=== PATIENT | female | born 1940 | race African-American/Black ===

== ENCOUNTER 2018-01-21 10:40 | Outpatient (CLI) | payer MEDICARE | END 2018-01-21 10:41 | disposition home or self-care (01) | LOC: BICMAMMO 10:40 | PROVIDERS: ATTEND Internal Medicine | DX: Z12.31 Encounter for screening mammogram for malignant neoplasm of breast (principal); R92.1 Mammographic calcification found on diagnostic imaging of breast | CPT/HCPCS: 77063; 77067 ==

== ENCOUNTER 2019-01-25 09:19 | Outpatient (CLI) | payer MEDICARE | END 2019-01-25 09:20 | disposition home or self-care (01) | LOC: BICMAMMO 09:19 | PROVIDERS: ATTEND Internal Medicine | DX: Z12.31 Encounter for screening mammogram for malignant neoplasm of breast (principal); R92.1 Mammographic calcification found on diagnostic imaging of breast | CPT/HCPCS: 77063; 77067 ==

== ENCOUNTER 2019-06-16 10:36 | Emergency (ER) | payer MEDICARE ==
--- NOTE | 2019-06-16 11:05 | RAD ---
XR Chest 1 View Portable HISTORY: Weakness, dizziness, shortness of breath, hypertension COMPARISON: None FINDINGS: The heart size is at upper limits of normal. The lungs are well expanded without focal area s of consolidation, pneumothorax or pleural effusions. IMPRESSION: No radiographic evidence of acute cardiopulmonary process.
[2019-06-16 11:13] LABS: #Basophils 0.1 thou/uL (0.0-0.2); #Eosinphils 0.1 thou/uL (0.0-0.7); #Lymphocytes 1.7 thou/uL (1.20-3.40); #Monocytes 0.4 thou/uL (0.11-0.59); #Neutrophils 2.7 thou/uL (1.40-6.50); %Eosinophils 1.7 % (0.0-10.0); %Lymphocytes 33.9 % (21.0-51.0); %Monocytes 8.4 % (0.0-10.0); Hemoglobin 12.9 g/dL (12.0-16.0); Mean Corpuscular HGB CONC 34.1 g/dL (32.0-36.0); Mean Corpuscular Hemoglobin 32.6 pg (27.0-31.0); Mean Corpuscular Volume 95.7 fL (78.0-98.0); Mean Platelet Volume 7.2 fL (7.4-10.4); Platelet Count 200 thou/uL (130-400); RBC Distribution Width 11.1 % (11.5-14.5); Red Blood Cell (RBC) Count 3.96 mill/uL (4.20-5.40)
[2019-06-16 11:34] LABS: ALT (SGPT) 13 U/L (8-55); AST (SGOT) 17 U/L (5-34); Albumin 4.1 g/dL (3.4-4.8); Alkaline Phosphatase 73 U/L (40-150); Anion Gap 12 mmol/L (10-20); BUN (Urea Nitrogen) 13 mg/dL (9.8-20.1); Bilirubin, Total 0.5 mg/dL (0.2-1.2); Calc. Creatinine Clearance 0 mL/min (70-130); Calcium 10.6 mg/dL (7.8-10.44); Carbon Dioxide 29 mmol/L (23-31); Chloride 103 mmol/L (98-107); Estimated GFR-MDRD 90; Globulin 3.2 g/dL (2.4-3.5); Glucose 96 mg/dL (83-110); Magnesium 1.9 mg/dL (1.6-2.6); Potassium 3.2 mmol/L (3.5-5.1); Protein, Total 7.3 g/dL (6.0-8.3); Sodium 141 mmol/L (136-145)
[2019-06-16 11:49] LABS: Bilirubin Negative (Negative); Blood, Urine Negative (Negative); Clarity Clear (Clear); Glucose, Urine (Dipstick) Normal (Negative); Leukocyte 25 Leu/uL (Negative); Nitrite Negative (Negative); Protein, Urine (Dipstick) Negative (Neg-Trace); RBC/HPF 0-3 HPF (0-3); Squamous Epithelial 0-3 HPF (0-3); Urobilinogen Normal mg/dL (Less than 2); WBC/HPF 0-3 HPF (0-3)
[2019-06-16 11:50] LABS: Bacteria/HPF 1+ HPF (None Seen)
== END 2019-06-16 14:19 | disposition home or self-care (01) ==
LOC: ERS 10:36
DX: R55 Syncope and collapse (principal); I10 Essential (primary) hypertension; Z79.899 Other long term (current) drug therapy
CPT/HCPCS: 36415; 71045; 80053; 81003; 81015; 83735; 84484; 85025; 93005

== ENCOUNTER 2019-08-28 13:09 | Observation (INO) | payer MEDICARE ==
--- NOTE | 2019-08-28 14:09 | CT ---
CT Brain WO Con: 08/28/2019 1:45 PM CLINICAL HISTORY: High blood pressure and dizziness. IMAGING TECHNIQUE: Multiple CT images were obtained of the brain without IV contrast. COMPARISON: May 19, 2013 FINDINGS: Brain: No acute infarct, hemorrhage or midline shift is evident. There is mild chronic small vessel white matter ischemic change. Ventricles: Normal. No hydrocephalus.. Skull: Intact.. Visualized Paranasal sinuses: Clear.. Mastoid air cells:Clear. Extracranial soft tissues:Normal. IMPRESSION: No acute intracranial abnormality.
[2019-08-28] MEDS ORDERED: Meclizine HCl 25 MG TAB ONE (14:32)
[2019-08-28 14:42] LABS: #Lymphocytes 1.5 thou/uL (1.20-3.40); #Monocytes 0.4 thou/uL (0.11-0.59); #Neutrophils 1.8 thou/uL (1.40-6.50); %Basophils 0.6 % (0.0-1.0); %Lymphocytes 39.3 % (21.0-51.0); %Monocytes 11.8 % (0.0-10.0); %Neutrophils 47.5 % (42.0-75.0); Hemoglobin 12.4 g/dL (12.0-16.0); Mean Corpuscular HGB CONC 34.7 g/dL (32.0-36.0); Mean Corpuscular Hemoglobin 32.4 pg (27.0-31.0); Mean Corpuscular Volume 93.3 fL (78.0-98.0); Mean Platelet Volume 6.9 fL (7.4-10.4); Platelet Count 211 thou/uL (130-400); RBC Distribution Width 10.7 % (11.5-14.5); Red Blood Cell (RBC) Count 3.83 mill/uL (4.20-5.40); White Blood Cell (WBC) Count 3.7 thou/uL (4.8-10.8)
[2019-08-28 15:06] LABS: ALT (SGPT) 11 U/L (8-55); AST (SGOT) 16 U/L (5-34); Albumin 3.9 g/dL (3.4-4.8); Alkaline Phosphatase 70 U/L (40-110); Anion Gap 9 mmol/L (10-20); BUN (Urea Nitrogen) 7 mg/dL (9.8-20.1); Bilirubin, Total 0.5 mg/dL (0.2-1.2); Calc. Creatinine Clearance 0 mL/min (70-130); Calcium 9.7 mg/dL (7.8-10.44); Carbon Dioxide 27 mmol/L (23-31); Chloride 96 mmol/L (98-107); Estimated GFR-MDRD Greater than 90; Globulin 3.4 g/dL (2.4-3.5); Glucose 94 mg/dL (83-110); Potassium 3.6 mmol/L (3.5-5.1); Protein, Total 7.3 g/dL (6.0-8.3); Sodium 128 mmol/L (136-145)
[2019-08-28 15:27] LABS: CKMB 2.8 ng/mL (0-6.6)
[2019-08-28] MEDS ORDERED: hydrALAZINE 20 MG/ML VIAL ONE (17:32)
[2019-08-28] MEDS ORDERED: Senokot S 8.6-50 MG TAB PO PRN (18:40)
[2019-08-28] MEDS ORDERED: Acetaminophen 325 MG TAB PO PRN (18:40)
[2019-08-28] MEDS ORDERED: Sodium Chloride 0.45% 1,000 ML IV SCH (18:45)
[2019-08-28 18:49] LABS: Bilirubin Negative (Negative); Blood, Urine Negative (Negative); Clarity Clear (Clear); Glucose, Urine (Dipstick) Normal (Negative); Leukocyte Negative Leu/uL (Negative); Nitrite Negative (Negative); Protein, Urine (Dipstick) Negative (Neg-Trace); Urobilinogen Normal mg/dL (Less than 2)
[2019-08-28 20:08] VITALS: BMI 36.6
[2019-08-28] MEDS: Famotidine 20 MG TAB PO SCH (20:39)
[2019-08-28 20:52] LABS: Troponin I 0.019 ng/mL (< 0.028)
--- NOTE | 2019-08-28 20:59 | HP ---
PRIMARY CARE PHYSICIAN: Dr. Mckinney. CHIEF COMPLAINT: Dizziness, hypertension. HISTORY OF PRESENT ILLNESS: Ms. Myers is a very pleasant 79-year-old female, who came to the ER today complaining of dizziness and high blood pressure. Reports that Dr. Mckinney changed her home blood pressure medication a week ago and today she started feeling dizzy. When she checked her blood pressure, it was elevated. The patient denies any chest pain, shortness of breath, abdominal pain, fever, or cough. Denies any recent falls or injuries. She reports that she has a history of dizziness, and as needed she has meclizine at home that she takes it and makes it better. The patient's family reports that the patient has an appointment with Dr. Mckinney on Thursday. She was probably going to increase one of the new medications that she gave her. Family reports that she took her off her amlodipine and added atenolol, she was either going to increase it or make it b.i.d. In the emergency room initially, her blood pressure was 211/86. She was given a dose of meclizine and hydralazine IV and some fluids, and one hospitalist CSR saw her she was feeling better and eating her supper. Family also reports that she swells on her bilateral lower legs pretty much every day and she has never had a cardiac workup. Her initial troponin in the emergency room was in the indeterminate range at 0.033. Subsequent one is undetectable at 0.28. Sodium is also found to be low 128, potassium 3.6, chloride 96, gap is 9, BUN is 7, creatinine is 0.72, estimated GFR is greater than 90, glucose 94, calcium 9.7. Liver enzymes are unremarkable. Hemoglobin 12.4, hematocrit 35.7, and platelet count 211. Urine was negative. She was subsequently admitted to the observation unit for hydration and is trending troponins. REVIEW OF SYSTEMS: The patient reports some dizziness. All other systems are reviewed and are negative unless mentioned in the HPI. PAST MEDICAL HISTORY: GERD, hypertension. PAST SURGICAL HISTORY: Right knee surgery. SOCIAL HISTORY: Lives at home with her family. She denies any alcohol use. Denies any drug use. No smoking history. The patient does have Home Health that comes to visit several times a week. FAMILY HISTORY: Reviewed. ALLERGIES: NONE. CURRENT MEDICATIONS: Per the ER system, are still have to be verified. 1. Aspirin 81 mg p.o. once a day. 2. Atenolol 25 mg p.o. once a day at bedtime. 3. Losartan/hydrochlorothiazide 100/12.5 mg p.o. q.a.m. 4. Meclizine 25 mg q.8 hours p.r.n. as needed. 5. Xanax 1 mg p.o. as needed for anxiety. PHYSICAL EXAMINATION: VITAL SIGNS: Blood pressure 142/83, pulse is 78, respirations are 18, temperature is 98.1, pO2 saturations are 99% on room air. CONSTITUTIONAL: The patient appears nontoxic. She is alert and oriented to person, place, and time. HEENT: Head is atraumatic and normocephalic. Eyelids are normal to inspection. Pupils are equally round and reactive to light. ENT: Mucous membranes are moist. Mouth exam is normal. NECK: Normal range of motion. Trachea is midline. RESPIRATORY: Chest movement is symmetrical. Breath sounds are clear. CARDIOVASCULAR: Regular rate and rhythm. Heart sounds are normal. ABDOMEN: Nontender. Bowel sounds are heard. BACK: Normal inspection. Normal range of motion. No tenderness. EXTREMITIES: Upper extremity, normal range of motion, normal strength, radial pulses are normal. Lower extremity, normal inspection, normal range of motion, pedal pulses are normal. The patient is wearing compression hose. No edema is noted. NEUROLOGIC: The patient is oriented to person, place, and time. Speech is normal. SKIN: Warm, dry, normal in color. PSYCH: Has a normal affect. She is alert and oriented to person, place, and time. LABORATORY DATA: EKG in the emergency room shows sinus darien, beats per minute 59. T-waves are flattened. CT of the brain was also obtained in the emergency room and no acute findings. ASSESSMENT AND PLAN: 1. Hyponatremia. We will gently hydrate the patient, half-normal saline at 75 mL per hour. Recheck electrolytes in the morning. 2. Indeterminate troponin. We will trend. The patient's family reports that she has significant swelling in her bilateral lower legs and she has never had an echocardiogram, so we will obtain that while she is here. 3. Hypertension. We will restart her home medication. We will trend. 4. History of dizziness/vertigo. Restart her meclizine as needed. 5. Deep venous thrombosis and gastrointestinal prophylaxis have been started. 6. Case was discussed with Dr. Phillips, who agrees with plan. 7. Hospital course is dependent on clinical findings. Job ID: [id number] MTDD
[2019-08-28] MEDS ORDERED: Atenolol 25 MG TAB PO SCH (21:30)
[2019-08-28] MEDS ORDERED: ALPRAZolam 0.25 MG TAB PO PRN (22:30)
[2019-08-28] MEDS ORDERED: cloNIDine 0.1 MG TAB PO PRN (22:30)
[2019-08-29 04:33] LABS: #Lymphocytes 2.2 thou/uL (1.20-3.40); #Monocytes 0.6 thou/uL (0.11-0.59); %Basophils 0.6 % (0.0-1.0); %Lymphocytes 44.7 % (21.0-51.0); %Monocytes 12.6 % (0.0-10.0); %Neutrophils 41.1 % (42.0-75.0); Hemoglobin 11.5 g/dL (12.0-16.0); Mean Corpuscular HGB CONC 34.8 g/dL (32.0-36.0); Mean Corpuscular Hemoglobin 33.1 pg (27.0-31.0); Mean Corpuscular Volume 95.1 fL (78.0-98.0); Mean Platelet Volume 7.2 fL (7.4-10.4); Platelet Count 215 thou/uL (130-400); RBC Distribution Width 10.8 % (11.5-14.5); Red Blood Cell (RBC) Count 3.46 mill/uL (4.20-5.40)
[2019-08-29 04:37] LABS: Anion Gap 12 mmol/L (10-20); BUN (Urea Nitrogen) 9 mg/dL (9.8-20.1); Calc. Creatinine Clearance 86 mL/min (70-130); Carbon Dioxide 23 mmol/L (23-31); Chloride 102 mmol/L (98-107); Estimated GFR-MDRD Greater than 90; Glucose 87 mg/dL (83-110); Potassium 3.5 mmol/L (3.5-5.1); Sodium 133 mmol/L (136-145)
[2019-08-29] MEDS ORDERED: Losartan/Hydrochlorothiazide 100 mg/25 mg Tablet PO SCH (09:00)
[2019-08-29] MEDS ORDERED: Prevnar 13-Val Conj/PF 0.5 ML SYRINGE IM ONE (09:00)
[2019-08-29] MEDS: Losartan 25 MG TAB PO SCH ×2 (09:11→20:36)
[2019-08-29] MEDS: Famotidine 20 MG TAB PO SCH ×2 (09:11→20:36)
[2019-08-29] MEDS: Enoxaparin Sodium 40 MG/0.4 ML SYRINGE SC SCH (09:11)
[2019-08-29] MEDS ORDERED: Meclizine HCl 25 MG TAB PO PRN (09:16)
[2019-08-29] MEDS ORDERED: Lorazepam 0.5 MG TAB PO PRN (09:19)
[2019-08-29] MEDS ORDERED: Atenolol 25 MG TAB PO SCH (21:00)
--- NOTE | 2019-08-29 21:36 | PDOC.HOSPP ---
- Subjective Encounter Date: 08/29/19 Encounter Time: 12:00 Subjective: Patient seen and examined for dizziness. No new focal deficits. No CP/SOB or palpitations. No new complaints. No overnight events - Objective Vital Signs & Weight: Vital Signs (12 hours) Temp Pulse Resp BP BP Pulse Ox 08/29/19 20:40 53 L 08/29/19 19:40 97.5 F L 54 L 15 146/63 H 98 08/29/19 18:03 180/74 H 08/29/19 15:38 98.1 F 60 16 183/80 H 98 08/29/19 10:28 97.4 F L 60 16 161/72 H 98 Weight Admit Weight 181 lb 1.6 oz Weight 181 lb 1.6 oz I&O: 08/28/19 08/29/19 08/30/19 06:59 06:59 06:59 Intake Total 1150 970 Output Total 1300 650 Balance -150 320 Result Diagrams: 08/29/19 03:53 08/29/19 03:53 EKG Reviewed by me: Yes (Tele SR) Hospitalist ROS - Review of Systems Respiratory: denies: cough, dry, shortness of breath, hemoptysis, SOB with excertion, pleuritic pain, sputum, wheezing, other Cardiovascular: denies: chest pain, palpitations, orthopnea, paroxysmal noc. dyspnea, edema, light headedness, other - Medication Medications: Active Medications Generic Name Dose Route Start Last Admin Trade Name Freq PRN Reason Stop Dose Admin Atenolol 25 mg 08/29/19 21:00 08/29/19 20:40 Tenormin PO Not Given HS TERRY Clonidine 0.1 mg 08/28/19 22:30 08/29/19 18:03 Catapres PO 0.1 mg Q4H PRN Administration SBP Greater Than 170 Enoxaparin Sodium 40 mg 08/29/19 09:00 08/29/19 09:11 Lovenox SC 40 mg 0900 TERRY Administration Famotidine 20 mg 08/28/19 21:00 08/29/19 20:36 Pepcid PO 20 mg BID TERRY Administration Losartan Potassium 50 mg 08/29/19 09:00 08/29/19 20:36 Cozaar PO 50 mg BID TERRY Administration Sodium Chloride 10 ml 08/28/19 18:40 08/29/19 20:38 Flush - Normal Saline IVF 10 ml PRN PRN Administration Saline Flush - Exam General Appearance: NAD Neck: supple, no JVD Heart: RRR, no rubs Heart - other findings: no heaves/pulsations Respiratory: CTAB, no wheezes, no rales, no ronchi Gastrointestinal: soft, non-tender, non-distended, normal bowel sounds Extremities: no edema Neurological: cranial nerve grossly intact, normal sensation to touch, no weakness, no new deficit Psychiatric: normal affect, A&O x 3 Hosp A/P - Plan DVT proph w/SCDs Dizziness/Vertigo - suspected peripheral HTN Hyponatremia Obesity BMI 36.6 Elevated troponins due to demand ischemia/dehydration (Type 2 DC) GERD PLAN: Hold HCTZ due to hyponatremia Cont Losartan and BB Await Echo F/U with ENT as outpt
[2019-08-30 08:01] VITALS: TEMP 97.7
[2019-08-30] MEDS ORDERED: Amlodipine 5 MG TAB PO SCH (08:30)
[2019-08-30] MEDS ORDERED: Losartan 25 MG TAB PO SCH (09:00)
[2019-08-30] MEDS: Famotidine 20 MG TAB PO SCH (09:24)
[2019-08-30] MEDS: Enoxaparin Sodium 40 MG/0.4 ML SYRINGE SC SCH (09:24)
[2019-08-30 11:22] VITALS: BP 150/67
--- NOTE | 2019-08-30 11:50 | DIS ---
DATE OF ADMISSION: 08/28/2019 DATE OF DISCHARGE: 08/30/2019 DISCHARGE DISPOSITION: Home with [facility]. FOLLOWUP: 1. Follow up with Dr. Chaudhari, ENT tomorrow. 2. Follow up with primary care physician, Dr. Mckinney in 1 week. Repeat basic metabolic profile after 1 week is recommended. DISCHARGE MEDICATIONS: 1. Losartan 100 mg daily. 2. Meclizine as needed. 3. Amlodipine 2.5 mg daily. 4. Atenolol 25 mg at bedtime. Medication discontinued this admission hydrochlorothiazide. SIGNIFICANT LABORATORY DATA: Sodium on admission 128, repeat sodium next day was 133. Troponin was 0.033. Repeat troponin was 0.019. The patient was seen and examined on the day of discharge. Denies any new complaints. No chest pain, shortness of breath, or palpitations. CT scan of the brain on admission was negative. The patient will benefit from an outpatient cardiology evaluation including a stress test. BRIEF HOSPITAL COURSE: The patient is a 79-year-old female with hypertension and GERD, presented to the hospital with persistent dizziness along with elevated blood pressure. Her blood pressure in the emergency room was 211/86. Please refer to the history and physical for further details. The patient was admitted to the hospital with a diagnosis of generalized weakness, dizziness probably secondary to hyponatremia. Her sodium was 128. She received 1 L of IV fluid, after which a sodium improved. Hydrochlorothiazide was discontinued. Amlodipine was added to losartan 100 mg daily. She continued atenolol. The family was instructed to increase the dose of amlodipine to 2.5 mg b.i.d. if her blood pressure remains elevated. Due to symptoms consistent with peripheral vertigo along with tinnitus, the referral for ENT has been made for tomorrow. She had an echocardiogram that showed ejection fraction greater than 60 to 65 with mild aortic regurgitation, [id number] tricuspid regurgitation and mild pulmonic regurgitation. PLAN: Plan of care was discussed with the patient and the family in detail. They stated understanding. FINAL DIAGNOSES: 1. Generalized weakness, multifactorial. 2. Hyponatremia, probably secondary to dehydration along with hydrochlorothiazide. 3. Hypertension with hypertensive urgency. 4. Peripheral vertigo. 5. Anxiety. 6. Elevated troponin secondary to uncontrolled blood pressure/demand ischemia/type 2 myocardial infarction. 7. Obesity with a BMI of 36.6. Job ID: [id number]
[2019-08-31] MEDS ORDERED: Amlodipine 5 MG TAB PO SCH (09:00)
== END 2019-08-30 11:55 | disposition home health service (06) ==
LOC: ERS 13:09 → 2SW 18:27
PROVIDERS: ADMIT Internal Medicine; ATTEND Internal Medicine
DX: E87.1 Hypo-osmolality and hyponatremia (principal); E86.0 Dehydration; H81.399 Other peripheral vertigo, unspecified ear; I16.0 Hypertensive urgency; I10 Essential (primary) hypertension; F41.9 Anxiety disorder, unspecified; I21.A1 Myocardial infarction type 2; E66.9 Obesity, unspecified; Z68.36 Body mass index [BMI] 36.0-36.9, adult; Z79.82 Long term (current) use of aspirin; Z79.899 Other long term (current) drug therapy
CPT/HCPCS: 70450; 80048; 80053; 81003; 82553; 84484 ×2; 85025 ×2; 90670; 93005; 93306; 94760; 96361 ×3; 96372 ×2; 96374; 97116; 99285; G0009; G0378 ×4; 36415; 90471; J0360; J1650; J8597

== ENCOUNTER 2021-07-05 09:37 | Outpatient (CLI) | payer MEDICARE | END 2021-07-05 09:38 | disposition home or self-care (01) | LOC: BICMAMMO 09:37 | PROVIDERS: ATTEND Internal Medicine | DX: Z12.31 Encounter for screening mammogram for malignant neoplasm of breast (principal) | CPT/HCPCS: 77063; 77067 ==

== ENCOUNTER 2022-06-13 08:56 | Outpatient (CLI) | payer MEDICARE | END 2022-06-13 08:57 | disposition home or self-care (01) | LOC: NM 08:56 | PROVIDERS: ATTEND Psychiatry & Neurology Neurology | DX: R25.1 Tremor, unspecified (principal); G20 Parkinson's disease | CPT/HCPCS: 78803; A9584 ==

== ENCOUNTER 2024-08-27 08:19 | Inpatient (IN) | payer MEDICARE ==
[2024-08-27 09:11] LABS: #Basophils Less than 0.03 10x3/uL (0.0-0.2); #Eosinophils Less than 0.03 10x3/uL (0.0-0.7); %Basophils 0.1 % (0.0-1.0); %Lymphocytes 2.3 % (21.0-51.0); %Monocytes 4.4 % (0.0-10.0); %Neutrophils 92.9 % (42.0-75.0); Hematocrit 32.8 % (36.0-47.0); Hemoglobin 11.4 g/dL (12.0-16.0); Mean Corpuscular HGB CONC 34.8 g/dL (32.0-36.0); Mean Corpuscular Hemoglobin 32.8 pg (27.0-31.0); Mean Corpuscular Volume 94.3 fL (78.0-98.0); Mean Platelet Volume 10.2 fL (7.4-10.4); Platelet Count 185 10x3/uL (130-400); RBC Distribution Width 12.3 % (11.5-14.5); Red Blood Cell (RBC) Count 3.48 mill/uL (4.20-5.40)
[2024-08-27] MEDS ORDERED: Iopamidol 370 76% 100 ML VIAL ONE (09:14)
[2024-08-27 09:28] LABS: Bacteria/HPF None Seen HPF (None Seen); Bilirubin Negative (Negative); Blood, Urine Trace (Negative); CAUTI Indications for Culture Immunosuppressed; Clarity Clear (Clear); Glucose, Urine (Dipstick) Normal (Negative); Ketone, Urine Trace mg/dL (Negative); Leukocyte Negative Leu/uL (Negative); Nitrite Negative (Negative); Protein, Urine (Dipstick) 30 mg/dL (Neg-Trace); Specific Gravity, Urine 1.017 (1.002-1.036); Squamous Epithelial 0-3 HPF (0-3); WBC/HPF 0-3 HPF (0-3)
[2024-08-27 09:30] LABS: ALT (SGPT) 6 U/L (8-55); AST (SGOT) 15 U/L (5-34); Albumin 3.8 g/dL (3.4-4.8); Alkaline Phosphatase 63 U/L (40-110); Anion Gap 17 mmol/L (10-20); BUN (Urea Nitrogen) 13 mg/dL (9.8-20.1); Bilirubin, Total 1.3 mg/dL (0.2-1.2); Calc. Creatinine Clearance 0 mL/min (70-130); Calcium 10.1 mg/dL (7.8-10.44); Carbon Dioxide 20 mmol/L (23-31); Chloride 95 mmol/L (98-107); Estimated GFR 42; Glucose 165 mg/dL (83-110); Lipase 12 U/L (8-78); Protein, Total 6.8 g/dL (5.8-8.1); Sodium 128 mmol/L (136-145)
[2024-08-27 09:30] LABS: Urine Culture Reflex Yes Yes
[2024-08-27 09:34] LABS: Troponin I 0.022 ng/mL (< 0.028)
[2024-08-27] MEDS ORDERED: Benzocaine 20% Spray 60 ML CAN ONE (11:35)
[2024-08-27] MEDS ORDERED: Acetaminophen 650 MG Suppository PR PRN (12:19)
[2024-08-27] MEDS ORDERED: Morphine 2 MG/ML VIAL SLOW IVP PRN (12:20)
[2024-08-27] MEDS: Lactated Ringer's 1,000 ML IV SCH (13:54)
[2024-08-27] MEDS: Pantoprazole 40 MG VIAL IVP SCH (13:55)
[2024-08-27 15:37] VITALS: BMI 21.0
[2024-08-27] MEDS: hydrALAZINE 20 MG/ML VIAL SLOW IVP PRN (16:33)
[2024-08-27] MEDS ORDERED: DorzolamidE/Timolol 2%/0.5% Ophth Soln 10 ml Bottle L EYE SCH (21:00)
[2024-08-27] MEDS ORDERED: DorzolamidE/Timolol 2%/0.5% Ophth Soln 10 ml Bottle R EYE SCH (21:00)
[2024-08-27] MEDS: DorzolamidE/Timolol 2%/0.5% Ophth Soln 10 ml Bottle EA EYE SCH (22:50)
[2024-08-28 05:48] LABS: #Basophils Less than 0.03 10x3/uL (0.0-0.2); #Eosinophils Less than 0.03 10x3/uL (0.0-0.7); %Basophils 0.2 % (0.0-1.0); %Lymphocytes 8.5 % (21.0-51.0); %Monocytes 7.1 % (0.0-10.0); %Neutrophils 83.9 % (42.0-75.0); Hematocrit 31.8 % (36.0-47.0); Hemoglobin 10.9 g/dL (12.0-16.0); Mean Corpuscular HGB CONC 34.3 g/dL (32.0-36.0); Mean Corpuscular Hemoglobin 32.8 pg (27.0-31.0); Mean Corpuscular Volume 95.8 fL (78.0-98.0); Mean Platelet Volume 9.8 fL (7.4-10.4); Platelet Count 174 10x3/uL (130-400); RBC Distribution Width 12.5 % (11.5-14.5); Red Blood Cell (RBC) Count 3.32 mill/uL (4.20-5.40)
[2024-08-28 06:05] LABS: Anion Gap 15 mmol/L (10-20); BUN (Urea Nitrogen) 16 mg/dL (9.8-20.1); Calc. Creatinine Clearance 36 mL/min (70-130); Calcium 9.3 mg/dL (7.8-10.44); Carbon Dioxide 21 mmol/L (23-31); Chloride 99 mmol/L (98-107); Estimated GFR 49; Glucose 88 mg/dL (83-110); Magnesium 1.5 mg/dL (1.6-2.6); Potassium 3.8 mmol/L (3.5-5.1); Sodium 131 mmol/L (136-145)
[2024-08-28 06:18] LABS: Phosphorus 3.8 mg/dL (2.3-4.7)
[2024-08-28] MEDS: Pantoprazole 40 MG VIAL IVP SCH (08:35)
[2024-08-28] MEDS: Magnesium 2 GM/50 ML(in water) 2 GM in Premix 1 BAG IVPB SCH (08:35)
[2024-08-28] MEDS: Lactated Ringer's 1,000 ML IV SCH (15:22)
[2024-08-28] MEDS: Lactated Ringer's 500 ML IV SCH (15:22)
[2024-08-29 07:39] LABS: #Basophils Less than 0.03 10x3/uL (0.0-0.2); #Eosinophils Less than 0.03 10x3/uL (0.0-0.7); %Basophils 0.1 % (0.0-1.0); %Eosinophils 0.1 % (0.0-10.0); %Lymphocytes 11.1 % (21.0-51.0); %Monocytes 7.8 % (0.0-10.0); %Neutrophils 80.3 % (42.0-75.0); Hematocrit 28.1 % (36.0-47.0); Hemoglobin 9.5 g/dL (12.0-16.0); Mean Corpuscular HGB CONC 33.8 g/dL (32.0-36.0); Mean Corpuscular Hemoglobin 32.3 pg (27.0-31.0); Mean Corpuscular Volume 95.6 fL (78.0-98.0); Mean Platelet Volume 9.8 fL (7.4-10.4); Platelet Count 162 10x3/uL (130-400); RBC Distribution Width 12.7 % (11.5-14.5); Red Blood Cell (RBC) Count 2.94 mill/uL (4.20-5.40)
[2024-08-29 08:07] LABS: ALT (SGPT) 6 U/L (8-55); AST (SGOT) 14 U/L (5-34); Albumin 2.9 g/dL (3.4-4.8); Alkaline Phosphatase 45 U/L (40-110); Anion Gap 11 mmol/L (10-20); BUN (Urea Nitrogen) 16 mg/dL (9.8-20.1); Bilirubin, Direct 0.5 mg/dL (0.1-0.3); Bilirubin, Total 1.2 mg/dL (0.2-1.2); Calc. Creatinine Clearance 45 mL/min (70-130); Calcium 9.2 mg/dL (7.8-10.44); Carbon Dioxide 24 mmol/L (23-31); Chloride 101 mmol/L (98-107); Estimated GFR 65; Glucose 77 mg/dL (83-110); Potassium 3.2 mmol/L (3.5-5.1); Protein, Total 5.3 g/dL (5.8-8.1); Sodium 133 mmol/L (136-145)
[2024-08-29] MEDS ORDERED: Glycerin Adult Supp. (12 ct jar) PR PRN (10:15)
[2024-08-29] MEDS: Potassium Chloride 20 MEQ in Premix 1 BAG IVPB SCH (11:14)
[2024-08-29] MEDS: Lactated Ringer's 1,000 ML IV SCH (11:15)
[2024-08-29] MEDS: Glycerin Adult Supp. (12 ct jar) PR SCH (11:15)
[2024-08-29 12:15] VITALS: BMI 21.0
[2024-08-30 08:18] LABS: #Basophils Less than 0.03 10x3/uL (0.0-0.2); %Basophils 0.1 % (0.0-1.0); %Eosinophils 0.4 % (0.0-10.0); %Monocytes 8.8 % (0.0-10.0); %Neutrophils 79.2 % (42.0-75.0); Hemoglobin 10.1 g/dL (12.0-16.0); Mean Corpuscular HGB CONC 31.6 g/dL (32.0-36.0); Mean Corpuscular Hemoglobin 32.3 pg (27.0-31.0); Mean Corpuscular Volume 102.2 fL (78.0-98.0); Mean Platelet Volume 9.7 fL (7.4-10.4); Platelet Count 167 10x3/uL (130-400); Red Blood Cell (RBC) Count 3.13 mill/uL (4.20-5.40)
[2024-08-30 09:19] LABS: ALT (SGPT) 7 U/L (8-55); AST (SGOT) 17 U/L (5-34); Alkaline Phosphatase 47 U/L (40-110); Anion Gap 15 mmol/L (10-20); BUN (Urea Nitrogen) 16 mg/dL (9.8-20.1); Bilirubin, Direct 0.4 mg/dL (0.1-0.3); Bilirubin, Total 1.2 mg/dL (0.2-1.2); Calc. Creatinine Clearance 50 mL/min (70-130); Calcium 9.3 mg/dL (7.8-10.44); Carbon Dioxide 20 mmol/L (23-31); Chloride 103 mmol/L (98-107); Estimated GFR 73; Glucose 89 mg/dL (83-110); Potassium 3.7 mmol/L (3.5-5.1); Protein, Total 5.6 g/dL (5.8-8.1); Sodium 134 mmol/L (136-145)
[2024-08-30] MEDS: Glycerin Adult Supp. (12 ct jar) PR SCH (09:59)
[2024-08-31 05:38] LABS: ALT (SGPT) 7 U/L (8-55); AST (SGOT) 14 U/L (5-34); Albumin 2.9 g/dL (3.4-4.8); Alkaline Phosphatase 42 U/L (40-110); Anion Gap 14 mmol/L (10-20); BUN (Urea Nitrogen) 21 mg/dL (9.8-20.1); Bilirubin, Direct 0.4 mg/dL (0.1-0.3); Calc. Creatinine Clearance 45 mL/min (70-130); Calcium 9.6 mg/dL (7.8-10.44); Carbon Dioxide 23 mmol/L (23-31); Chloride 102 mmol/L (98-107); Estimated GFR 64; Glucose 104 mg/dL (83-110); Potassium 3.9 mmol/L (3.5-5.1); Protein, Total 5.6 g/dL (5.8-8.1); Sodium 135 mmol/L (136-145)
[2024-08-31 05:52] LABS: Hematocrit 29.3 % (36.0-47.0); Hemoglobin 9.9 g/dL (12.0-16.0); Mean Corpuscular HGB CONC 33.8 g/dL (32.0-36.0); Mean Corpuscular Hemoglobin 32.2 pg (27.0-31.0); Mean Corpuscular Volume 95.4 fL (78.0-98.0); Mean Platelet Volume 10.2 fL (7.4-10.4); Platelet Count 167 10x3/uL (130-400); RBC Distribution Width 12.6 % (11.5-14.5); Red Blood Cell (RBC) Count 3.07 mill/uL (4.20-5.40)
[2024-08-31 06:43] LABS: Anisocytosis SLIGHT = 6-15 cells HPF (0-5); Band 16 % (5-11); Burr Cells MODERATE= 6-15 cells HPF (0-1); Lymphocytes 10 % (21-51); Metamyelocyte 5 % (0-0); Monocytes 5 % (0-10); Neutrophil 64 % (42-75); Platelet Adequacy Comment Platelets Normal; Poikilocytosis SLIGHT = 6-15 cells HPF (0-5); Target Cells SLIGHT = 2-5 cells HPF (0-1); Toxic Granulation SLIGHT
[2024-08-31] MEDS ORDERED: MD-Gastroview 120 ML BOT ONE (09:21)
[2024-08-31] MEDS: Lorazepam 1 MG TAB PO PRN (14:37)
[2024-08-31] MEDS: Lactated Ringer's 1,000 ML IV SCH (18:20)
[2024-09-01 01:23] LABS: Bacteria/HPF 4+ HPF (None Seen); Bilirubin 1+ (Negative); Blood, Urine 2+ (Negative); CAUTI Indications for Culture Dysuria,urgency,freq; Clarity Turbid (Clear); Glucose, Urine (Dipstick) Normal (Negative); Ketone, Urine 20 mg/dL (Negative); Leukocyte Negative Leu/uL (Negative); Nitrite Negative (Negative); Protein, Urine (Dipstick) 50 mg/dL (Neg-Trace)
[2024-09-01 01:25] LABS: Urine Culture Reflex Yes Yes
[2024-09-01] MEDS: Lactated Ringer's 1,000 ML IV SCH (04:09)
[2024-09-01 05:51] LABS: #Basophils Less than 0.03 10x3/uL (0.0-0.2); #Eosinophils Less than 0.03 10x3/uL (0.0-0.7); %Eosinophils 0.2 % (0.0-10.0); %Lymphocytes 16.8 % (21.0-51.0); %Monocytes 11.6 % (0.0-10.0); %Neutrophils 70.9 % (42.0-75.0); Hematocrit 27.4 % (36.0-47.0); Hemoglobin 9.1 g/dL (12.0-16.0); Mean Corpuscular HGB CONC 33.2 g/dL (32.0-36.0); Mean Corpuscular Hemoglobin 32.3 pg (27.0-31.0); Mean Corpuscular Volume 97.2 fL (78.0-98.0); Mean Platelet Volume 9.7 fL (7.4-10.4); Platelet Count 164 10x3/uL (130-400); RBC Distribution Width 12.9 % (11.5-14.5); Red Blood Cell (RBC) Count 2.82 mill/uL (4.20-5.40)
[2024-09-01 06:13] LABS: Anion Gap 13 mmol/L (10-20); BUN (Urea Nitrogen) 24 mg/dL (9.8-20.1); Calc. Creatinine Clearance 44 mL/min (70-130); Calcium 9.7 mg/dL (7.8-10.44); Carbon Dioxide 26 mmol/L (23-31); Chloride 104 mmol/L (98-107); Estimated GFR 63; Glucose 83 mg/dL (83-110); Potassium 3.6 mmol/L (3.5-5.1); Sodium 139 mmol/L (136-145)
[2024-09-01] MEDS ORDERED: Non-Formulary Item 1 EACH (Losartan Potassium [Losartan Potassium] 100 MG Tablet) PO SCH (09:00)
[2024-09-01] MEDS: Losartan 25 MG TAB PO SCH (09:54)
[2024-09-01] MEDS: cefTRIAXone\\ROCEPHIN 1 GM in Sodium Chloride 0.9% 100 ML IVPB SCH (09:54)
[2024-09-01] MEDS: Atorvastatin Calcium 40 MG TAB PO SCH (09:54)
[2024-09-01] MEDS: Lorazepam 0.5 MG TAB PO SCH (10:43)
[2024-09-01] MEDS: Atenolol 50 MG TAB PO SCH (18:01)
[2024-09-01] MEDS: Ipratropium/Albuterol 3 ML NEB NEB PRN (22:32)
[2024-09-02 05:35] LABS: #Basophils Less than 0.03 10x3/uL (0.0-0.2); #Eosinophils Less than 0.03 10x3/uL (0.0-0.7); %Eosinophils 0.4 % (0.0-10.0); %Lymphocytes 17.8 % (21.0-51.0); %Monocytes 11.8 % (0.0-10.0); %Neutrophils 69.8 % (42.0-75.0); Hematocrit 26.2 % (36.0-47.0); Mean Corpuscular HGB CONC 34.4 g/dL (32.0-36.0); Mean Corpuscular Hemoglobin 32.5 pg (27.0-31.0); Mean Corpuscular Volume 94.6 fL (78.0-98.0); Mean Platelet Volume 10.2 fL (7.4-10.4); Platelet Count 163 10x3/uL (130-400); RBC Distribution Width 12.8 % (11.5-14.5); Red Blood Cell (RBC) Count 2.77 mill/uL (4.20-5.40)
[2024-09-02 06:19] LABS: Anion Gap 13 mmol/L (10-20); BUN (Urea Nitrogen) 23 mg/dL (9.8-20.1); Calc. Creatinine Clearance 45 mL/min (70-130); Calcium 9.4 mg/dL (7.8-10.44); Carbon Dioxide 25 mmol/L (23-31); Chloride 104 mmol/L (98-107); Estimated GFR 65; Glucose 76 mg/dL (83-110); Potassium 3.3 mmol/L (3.5-5.1); Sodium 139 mmol/L (136-145)
[2024-09-02] MEDS: Aspirin Chewable 81 MG TAB PO SCH (11:19)
[2024-09-02] MEDS: Hydrochlorothiazide 25 MG TAB PO SCH (11:20)
[2024-09-02] MEDS: hydrALAZINE 20 MG/ML VIAL SLOW IVP PRN (22:17)
[2024-09-03] MEDS: hydrALAZINE 20 MG/ML VIAL SLOW IVP PRN (03:35)
[2024-09-03 05:11] LABS: #Basophils Less than 0.03 10x3/uL (0.0-0.2); #Eosinophils Less than 0.03 10x3/uL (0.0-0.7); %Basophils 0.1 % (0.0-1.0); %Eosinophils 0.1 % (0.0-10.0); %Lymphocytes 11.7 % (21.0-51.0); %Monocytes 7.2 % (0.0-10.0); Hematocrit 27.8 % (36.0-47.0); Mean Corpuscular HGB CONC 32.4 g/dL (32.0-36.0); Mean Corpuscular Volume 98.9 fL (78.0-98.0); Mean Platelet Volume 9.5 fL (7.4-10.4); Platelet Count 175 10x3/uL (130-400); RBC Distribution Width 13.1 % (11.5-14.5); Red Blood Cell (RBC) Count 2.81 mill/uL (4.20-5.40)
[2024-09-03 05:44] LABS: Anion Gap 16 mmol/L (10-20); BUN (Urea Nitrogen) 19 mg/dL (9.8-20.1); Calc. Creatinine Clearance 52 mL/min (70-130); Calcium 9.2 mg/dL (7.8-10.44); Carbon Dioxide 21 mmol/L (23-31); Chloride 106 mmol/L (98-107); Estimated GFR 78; Glucose 74 mg/dL (83-110); Sodium 140 mmol/L (136-145)
[2024-09-03] MEDS: Dextrose 5%-Lactated Ringers 1,000 ML IV SCH (09:09)
[2024-09-03] MEDS: Hydrochlorothiazide 25 MG TAB PO SCH (09:10)
[2024-09-03] MEDS: Amino Acids 4.25 %/Dextrose 5% 1,000 ML IV SCH (14:39)
[2024-09-04 04:30] LABS: #Basophils Less than 0.03 10x3/uL (0.0-0.2); %Basophils 0.1 % (0.0-1.0); %Eosinophils 0.6 % (0.0-10.0); %Lymphocytes 11.6 % (21.0-51.0); %Monocytes 6.8 % (0.0-10.0); %Neutrophils 80.3 % (42.0-75.0); Hematocrit 25.7 % (36.0-47.0); Hemoglobin 8.7 g/dL (12.0-16.0); Mean Corpuscular HGB CONC 33.9 g/dL (32.0-36.0); Mean Corpuscular Hemoglobin 31.9 pg (27.0-31.0); Mean Corpuscular Volume 94.1 fL (78.0-98.0); Mean Platelet Volume 9.8 fL (7.4-10.4); Platelet Count 173 10x3/uL (130-400); RBC Distribution Width 13.1 % (11.5-14.5); Red Blood Cell (RBC) Count 2.73 mill/uL (4.20-5.40)
[2024-09-04 05:01] LABS: Anion Gap 8 mmol/L (10-20); BUN (Urea Nitrogen) 14 mg/dL (9.8-20.1); Calc. Creatinine Clearance 55 mL/min (70-130); Calcium 8.7 mg/dL (7.8-10.44); Carbon Dioxide 26 mmol/L (23-31); Chloride 108 mmol/L (98-107); Estimated GFR 82; Glucose 117 mg/dL (83-110); Potassium 2.7 mmol/L (3.5-5.1); Sodium 139 mmol/L (136-145)
[2024-09-04] MEDS ORDERED: Hydrochlorothiazide 25 MG TAB PO SCH (08:29)
[2024-09-04] MEDS ORDERED: Electrolyte Replacement Protocol FS PRN (09:15)
[2024-09-04] MEDS: hydrALAZINE 25 MG TAB PO SCH (09:21)
[2024-09-04] MEDS: Potassium Bicarbonate/Cit Ac 20 MEQ TAB PO SCH (12:52)
[2024-09-04 18:46] LABS: Potassium 3.6 mmol/L (3.5-5.1)
[2024-09-04] MEDS: Melatonin 3 MG TAB PO SCH (20:26)
[2024-09-05] MEDS: Electrolyte Replacement Protocol 1 EACH FS ONE (00:49)
[2024-09-05 06:26] LABS: #Basophils Less than 0.03 10x3/uL (0.0-0.2); %Basophils 0.1 % (0.0-1.0); %Eosinophils 0.5 % (0.0-10.0); %Lymphocytes 12.4 % (21.0-51.0); %Monocytes 6.4 % (0.0-10.0); %Neutrophils 79.9 % (42.0-75.0); Hematocrit 26.8 % (36.0-47.0); Hemoglobin 9.2 g/dL (12.0-16.0); Mean Corpuscular HGB CONC 34.3 g/dL (32.0-36.0); Mean Corpuscular Hemoglobin 32.2 pg (27.0-31.0); Mean Corpuscular Volume 93.7 fL (78.0-98.0); Mean Platelet Volume 9.7 fL (7.4-10.4); Platelet Count 190 10x3/uL (130-400); RBC Distribution Width 13.2 % (11.5-14.5); Red Blood Cell (RBC) Count 2.86 mill/uL (4.20-5.40)
[2024-09-05 06:45] LABS: Anion Gap 7 mmol/L (10-20); BUN (Urea Nitrogen) 12 mg/dL (9.8-20.1); Calc. Creatinine Clearance 56 mL/min (70-130); Calcium 8.5 mg/dL (7.8-10.44); Carbon Dioxide 27 mmol/L (23-31); Chloride 107 mmol/L (98-107); Estimated GFR 84; Glucose 129 mg/dL (83-110); Magnesium 1.2 mg/dL (1.6-2.6); Potassium 3.4 mmol/L (3.5-5.1); Sodium 138 mmol/L (136-145)
[2024-09-05] MEDS: Magnesium Sulfate In Water 4 GM in Premix 1 BAG IVPB SCH (09:14)
[2024-09-05] MEDS: Potassium Chloride 20 MEQ TAB PO SCH (09:15)
[2024-09-05] MEDS: hydrALAZINE 25 MG TAB PO SCH (09:15)
[2024-09-05] MEDS: Furosemide 20 MG (2 mL) VIAL SLOW IVP SCH (12:44)
[2024-09-06 05:27] LABS: #Basophils Less than 0.03 10x3/uL (0.0-0.2); %Basophils 0.1 % (0.0-1.0); %Eosinophils 0.7 % (0.0-10.0); %Lymphocytes 12.7 % (21.0-51.0); %Neutrophils 79.8 % (42.0-75.0); Hematocrit 23.9 % (36.0-47.0); Hemoglobin 7.9 g/dL (12.0-16.0); Mean Corpuscular HGB CONC 33.1 g/dL (32.0-36.0); Mean Corpuscular Hemoglobin 32.4 pg (27.0-31.0); Mean Platelet Volume 9.9 fL (7.4-10.4); Platelet Count 163 10x3/uL (130-400); RBC Distribution Width 13.2 % (11.5-14.5); Red Blood Cell (RBC) Count 2.44 mill/uL (4.20-5.40)
[2024-09-06 06:16] LABS: Anion Gap 9 mmol/L (10-20); Calc. Creatinine Clearance 54 mL/min (70-130); Calcium 8.4 mg/dL (7.8-10.44); Carbon Dioxide 26 mmol/L (23-31); Chloride 110 mmol/L (98-107); Estimated GFR 80; Glucose 111 mg/dL (83-110); Magnesium 1.9 mg/dL (1.6-2.6); Potassium 3.4 mmol/L (3.5-5.1); Sodium 142 mmol/L (136-145)
[2024-09-06 06:51] LABS: BUN (Urea Nitrogen) 10 mg/dL (9.8-20.1)
[2024-09-06] MEDS: Magnesium 2 GM/50 ML(in water) 2 GM in Premix 1 BAG IVPB SCH (08:47)
[2024-09-06] MEDS: Potassium Bicarbonate/Cit Ac 20 MEQ TAB PO SCH (08:48)
[2024-09-06] MEDS: Pantoprazole DR 40 MG TAB PO SCH (08:53)
[2024-09-06] MEDS: hydrALAZINE 25 MG TAB PO SCH (08:56)
[2024-09-06] MEDS: Metoclopramide HCl 10 MG (2 mL) VIAL IVP PRN (12:15)
[2024-09-06 13:52] LABS: Potassium 3.8 mmol/L (3.5-5.1)
[2024-09-07 06:01] LABS: #Basophils Less than 0.03 10x3/uL (0.0-0.2); %Basophils 0.1 % (0.0-1.0); %Eosinophils 0.5 % (0.0-10.0); %Lymphocytes 12.7 % (21.0-51.0); %Neutrophils 79.2 % (42.0-75.0); Hematocrit 28.7 % (36.0-47.0); Hemoglobin 9.4 g/dL (12.0-16.0); Mean Corpuscular HGB CONC 32.8 g/dL (32.0-36.0); Mean Corpuscular Hemoglobin 31.8 pg (27.0-31.0); Mean Platelet Volume 10.3 fL (7.4-10.4); Platelet Count 202 10x3/uL (130-400); RBC Distribution Width 13.2 % (11.5-14.5); Red Blood Cell (RBC) Count 2.96 mill/uL (4.20-5.40)
[2024-09-07 06:12] LABS: Anion Gap 9 mmol/L (10-20); BUN (Urea Nitrogen) 11 mg/dL (9.8-20.1); Calc. Creatinine Clearance 55 mL/min (70-130); Calcium 8.7 mg/dL (7.8-10.44); Carbon Dioxide 25 mmol/L (23-31); Chloride 111 mmol/L (98-107); Estimated GFR 83; Glucose 107 mg/dL (83-110); Magnesium 2.1 mg/dL (1.6-2.6); Potassium 3.5 mmol/L (3.5-5.1); Sodium 141 mmol/L (136-145)
[2024-09-07] MEDS: Potassium Bicarbonate/Cit Ac 20 MEQ TAB PO SCH (08:48)
[2024-09-07 11:56] VITALS: BP 129/52; TEMP 97.8
== END 2024-09-07 12:20 | disposition hospice, home (50) | DRG 389 ==
LOC: ERS 08:19 → SURG A 13:24 → OBSVTOIN 18:22
PROVIDERS: ADMIT Family Medicine; ATTEND Internal Medicine
PROC: 0D9670Z Drainage of Stomach with Drainage Device, Via Natural or Artificial Opening (ICD-10-PCS; principal; 2024-08-27)
DX: K56.609 Unspecified intestinal obstruction, unspecified as to partial versus complete obstruction (principal); E87.1 Hypo-osmolality and hyponatremia; N17.9 Acute kidney failure, unspecified; G20.A1 Parkinson's disease without dyskinesia, without mention of fluctuations; F02.80 Dementia in other diseases classified elsewhere, unspecified severity, without behavioral disturbance, psychotic disturbance, mood disturbance, and anxiety; I10 Essential (primary) hypertension; E78.5 Hyperlipidemia, unspecified; K21.9 Gastro-esophageal reflux disease without esophagitis; H40.9 Unspecified glaucoma; K83.8 Other specified diseases of biliary tract; E87.6 Hypokalemia; R33.9 Retention of urine, unspecified; Z51.5 Encounter for palliative care; I45.10 Unspecified right bundle-branch block; Z66 Do not resuscitate; Z79.899 Other long term (current) drug therapy; Z79.82 Long term (current) use of aspirin; Z90.49 Acquired absence of other specified parts of digestive tract; Z88.5 Allergy status to narcotic agent
CPT/HCPCS: 36415; 36416; 51701; 71045; 74018; 74177; 74181; 74250; 76376; 76705; 80048; 80053; 80076; 81001; 83690; 83735; 83880; 84100; 84484; 85025; 87086; 93005; 94640; 96360; 96374; 96375; G0378; J0360; J0696; J1940; J2470; J2765; J3475; J3480; J7120; J7620; Q9963; Q9967